=== PATIENT | male | born 1950 | race Caucasian/White ===

== ENCOUNTER → 2021-12-29 15:26 | Outpatient (BNVA) | payer MEDICARE, SELFPAY | PROVIDERS: PCP Family Medicine; Visit Provider Family Medicine | DX: E78.5 Hyperlipidemia, unspecified (principal); I10 Essential (primary) hypertension; J18.9 Pneumonia, unspecified organism; M19.90 Unspecified osteoarthritis, unspecified site | CPT/HCPCS: 80053; 80061; 85025; 85651; 86140 ==

== ENCOUNTER → 2022-10-04 09:12 | Outpatient (BNVA) | payer MEDICARE, SELFPAY | PROVIDERS: PCP Family Medicine; Visit Provider Family Medicine | DX: I10 Essential (primary) hypertension (principal); E78.5 Hyperlipidemia, unspecified | CPT/HCPCS: 80053; 80061 ==

== ENCOUNTER → 2023-05-10 11:14 | Outpatient (BNVA) | payer MEDICARE, SELFPAY | PROVIDERS: PCP Family Medicine; Visit Provider Family Medicine | DX: E78.5 Hyperlipidemia, unspecified (principal); I10 Essential (primary) hypertension; M19.90 Unspecified osteoarthritis, unspecified site; R53.83 Other fatigue | CPT/HCPCS: 80053; 80061; 84443; 84550; 85025; 85651; 86140 ==